=== PATIENT | female | born 1995 | race African-American/Black ===

== ENCOUNTER 2016-12-04 02:55 | Observation (INO) ==
[2016-12-04 03:14] VITALS: BP 115/67
[2016-12-04 03:51] LABS: Bilirubin,Urine Negative (Negative); Blood,Urine Negative (Negative); Clarity,Urine Clear (Clear); Color,Urine Yellow (Yellow); Glucose,Urine (UA) Normal (Normal); Ketones,Urine Negative (Negative); Leukocyte Esterase,Urine Negative (Negative); Nitrite,Urine Negative (Negative); PH,Urine 6.5 pH Units (5.0-8.0); Protein,Urine Negative (Neg-Trace); Specific Gravity,Urine 1.014 (1.010-1.025); Urobilinogen,Urine Normal (Normal)
--- NOTE | 2016-12-05 16:04 | OB Labor Progress Note ---
Date of Encounter: 12/04/16 Time of Encounter: 22:00 Labor Progress Note - Plan Plan: patient presented as a labor eval, she was examined and deemed not to be in labor, ok for discharge, NST reactive.
== END 2016-12-04 04:04 | disposition home or self-care (01) ==
LOC: 1NENULAB

== ENCOUNTER 2017-01-14 20:21 | Observation (INO) ==
[2017-01-14 20:58] LABS: Bilirubin,Urine Negative (Negative); Blood,Urine Negative (Negative); Clarity,Urine Clear (Clear); Color,Urine Yellow (Yellow); Glucose,Urine (UA) Normal (Normal); Ketones,Urine Negative (Negative); Leukocyte Esterase,Urine Negative (Negative); Nitrite,Urine Negative (Negative); Protein,Urine Trace mg/dL (Neg-Trace); Specific Gravity,Urine 1.024 (1.010-1.025); Urobilinogen,Urine Normal (Normal)
[2017-01-14 21:00] VITALS: BP 119/73
[2017-01-14 21:01] LABS: Bacteria,Urine None Seen per hpf (None-Few); Hyaline Casts,Urine None Seen per lpf (None-Few); RBC,Urine 0-3 per hpf (0-3); Squamous Epithelial Cell,Urine Many per lpf (None-Few); WBC,Urine 0-3 per hpf (0-3)
--- NOTE | 2017-01-17 08:35 | OB Labor Progress Note ---
Date of Encounter: 01/14/17 Time of Encounter: 13:05 Labor Progress Note - Plan Plan: patient presented to [facility] for labor eval, evaluated and found not to be in labor, cervix closed, NST reactive, ok for discharge
== END 2017-01-14 21:42 | disposition home or self-care (01) ==
LOC: 1NENULAB
PROVIDERS: ADMIT Student in an Organized Health Care Education/Training Program; ATTEND Student in an Organized Health Care Education/Training Program

== ENCOUNTER → 2017-02-25 21:35 | Observation (INO) ==
[2017-02-25 20:42] LABS: Bilirubin,Urine Negative (Negative); Blood,Urine Negative (Negative); Clarity,Urine Clear (Clear); Color,Urine Yellow (Yellow); Glucose,Urine (UA) Normal (Normal); Ketones,Urine Negative (Negative); Leukocyte Esterase,Urine Large (Negative); Nitrite,Urine Negative (Negative); PH,Urine 6.5 pH Units (5.0-8.0); Protein,Urine Negative (Neg-Trace); Specific Gravity,Urine 1.011 (1.010-1.025); Urobilinogen,Urine Normal (Normal)
[2017-02-25 20:44] LABS: Bacteria,Urine Few per hpf (None-Few); Hyaline Casts,Urine None Seen per lpf (None-Few); Squamous Epithelial Cell,Urine Many per lpf (None-Few); WBC,Urine 15-30 per hpf (0-3)
--- NOTE | 2017-02-25 21:46 | OB/GYN Progress Note ---
Date of Encounter: 02/25/17 Time of Encounter: 21:43 - Assessment and Plan (1) 34 weeks gestation of Current Visit: Yes Status: Acute Patient receiving care with Dr. Alexander (2) uterine contractions in third trimester, antepartum Current Visit: Yes Status: Acute Labor warnings given. Pelvic rest recommended. Urine culture pending Subjective - Subjective Principal diagnosis: 34 week cramps and low back pain Interval history: The patient is a 21-year-old at 34 weeks who presents to labor and delivery with low back pain and cramping which started this afternoon. She had intercourse approximately 3 AM. She denies any dysuria or urinary frequency. She has had no loss of fluid or vaginal bleeding. She reports an active fetus. She receives her care with Dr. Alexander Antepartum ROS: new complaints, movement normal, contractions, no loss of fluid, no vaginal bleeding Objective - Vital Signs Vital Signs: Intake and Output 02/25/17 02/25/17 02/25/17 07:59 15:59 23:59 Other: Weight 60.7 kg Patient Weight 02/25/17 23:59 Weight 60.7 kg - Exam FHR: category 1 FHR comments: Baseline 150s Auscultation: bilateral: normal Abdomen: Present: soft, gravid. Absent: distention, tenderness Uterus: Present: normal. Absent: tenderness Cervical dilation: 1-2 Cervix effacement: 70 station: -1 Comments: No CVA tenderness bilaterally - Labs Labs: Abnormal lab results Ur Leukocyte Esterase Large (Negative) H 02/25/17 20:34 Urine Microscopic RBC 3-5 per hpf (0-3) H 02/25/17 20:34 Urine Microscopic WBC 15-30 per hpf (0-3) H 02/25/17 20:34 Ur Squamous Epith Cells Many per lpf (None-Few) H 02/25/17 20:34 Ur Culture Indicated? YES (NO) A 02/25/17 20:34 - Allied health notes Allied health notes reviewed: nursing
== END | disposition home or self-care (01) ==
LOC: 1NENULAB
PROVIDERS: ADMIT Obstetrics & Gynecology; ATTEND Obstetrics & Gynecology

== ENCOUNTER → 2017-03-01 11:05 | Observation (INO) ==
[2017-03-01 09:40] LABS: Bilirubin,Urine Negative (Negative); Blood,Urine Negative (Negative); Clarity,Urine Cloudy (Clear); Color,Urine Yellow (Yellow); Glucose,Urine (UA) Normal (Normal); Ketones,Urine Negative (Negative); Leukocyte Esterase,Urine Negative (Negative); Nitrite,Urine Negative (Negative); PH,Urine 6.5 pH Units (5.0-8.0); Protein,Urine Negative (Neg-Trace); Specific Gravity,Urine 1.019 (1.010-1.025); Urobilinogen,Urine Normal (Normal)
[2017-03-01 09:42] LABS: Bacteria,Urine Few per hpf (None-Few); Hyaline Casts,Urine None Seen per lpf (None-Few); RBC,Urine 0-3 per hpf (0-3); Squamous Epithelial Cell,Urine Many per lpf (None-Few)
--- NOTE | 2017-03-01 10:59 | OB/GYN Progress Note ---
Date of Encounter: 03/01/17 Time of Encounter: 10:55 - Assessment and Plan (1) 35 weeks gestation of Status: Acute (2) Pelvic pressure in , antepartum Status: Acute Ms. Posada is a 21 yo F at 35+1 who reports to L&D c/o pelvic pain/ pressure x 4 hours. Patient reports symptoms improving. Patient's cervix is unchanged from last visit to L&D. Serial exam unchanged. Patient and baby were monitored. Patient is safe for discharge home with labor precautions and when to call provider, pt verbalizes understanding. (3) NST (non-stress test) reactive Status: Acute Baseline 135 Subjective - Subjective Principal diagnosis: Rule out Labor / Pelvic pressure/pain Interval history: Ms. Posada is a 21 yo F at 35+1 who reports to L&D c/o pelvic pain/ pressure x 4 hours. Patient reports feeling pain/pressure starting at 5am. Patient reports pressure has lessened since being in L&D. Patient was seen here in L&D a few days ago with similar sxs. At that time she was examined and was 2cm dilated. Patient denies vaginal bleeding, loss of fluid, vomiting, diarrhea , cold sxs, dysuria. Patient reports good movement. Labs: Blood type O+ Rubella not immune, GBS not obtianed yet. Antepartum ROS: movement normal, contractions, no loss of fluid, no vaginal bleeding Objective - Vital Signs Vital Signs: Intake and Output 02/28/17 03/01/17 03/01/17 23:59 07:59 15:59 Other: Weight 59.2 kg Patient Weight 03/01/17 23:59 Weight 59.2 kg - Exam FHR: auscultation normal FHR comments: Baseline 135 Auscultation: bilateral: normal Abdomen: Present: soft, gravid. Absent: tenderness Cervical dilation: 2cm, 70, 0 per nurses exam - Labs Labs: Abnormal lab results Urine Clarity Cloudy (Clear) A 03/01/17 09:29 Urine Microscopic WBC 3-5 per hpf (0-3) H 03/01/17 09:29 Ur Squamous Epith Cells Many per lpf (None-Few) H 03/01/17 09:29
== END | disposition home or self-care (01) ==
LOC: 1NENULAB
PROVIDERS: ADMIT Obstetrics & Gynecology; ATTEND Obstetrics & Gynecology

== ENCOUNTER 2017-03-06 00:01 | Observation (INO) ==
[2017-03-06 00:27] LABS: Bilirubin,Urine Negative (Negative); Blood,Urine Negative (Negative); Clarity,Urine Clear (Clear); Color,Urine Yellow (Yellow); Glucose,Urine (UA) Normal (Normal); Ketones,Urine Negative (Negative); Leukocyte Esterase,Urine Negative (Negative); Nitrite,Urine Negative (Negative); PH,Urine 7.5 pH Units (5.0-8.0); Protein,Urine Negative (Neg-Trace); Urobilinogen,Urine Normal (Normal)
--- NOTE | 2017-03-06 07:01 | OB/GYN Progress Note ---
Date of Encounter: 03/06/17 Time of Encounter: 07:00 (Triaged by RN) - Assessment and Plan (1) uterine contractions in third trimester, antepartum Status: Acute Objective - Vital Signs Vital Signs: Intake and Output 03/05/17 03/05/17 03/06/17 15:59 23:59 07:59 Other: Weight 60.4 kg Patient Weight 03/06/17 23:59 Weight 60.4 kg
== END 2017-03-06 02:01 | disposition home or self-care (01) ==
LOC: 1NENULAB

== ENCOUNTER → 2017-03-09 03:35 | Observation (INO) ==
[2017-03-09 01:10] VITALS: BP 115/65
--- NOTE | 2017-03-09 02:10 | OB/GYN History & Physical ---
Date of Encounter: 03/09/17 Time of Encounter: 02:00 Assessment and Plan (1) Vomiting affecting , antepartum Status: Acute IV hydration with LR IV zofran x 1 dose Consider Rx for Zofran ODT if discharged home. Edit: Disharged home with Rx for Dilegis per patient request. Patient calls in and states that no insurance will not cover. Called Zofran ODT 4mg SL S9cummc PRN nausea and vomiting #30 no refils to [facility]. (2) uterine contractions in third trimester, antepartum Status: Acute Extended monitoring Urinalysis - pending edit - shows dehydration Serial vaginal exams edit - no change in dilation IV Fluids Consider Rx for vistaril if discharged home for therapeutic rest Contractions decreased in strength and frequency after IV fluid and IV zofran. Discharged home with labor precautions and to follow up in the office as scheduled for routing care. (3) NST (non-stress test) reactive Status: Acute FHTs 130 with moderate variability and 15x15 accels and no decels. Contractions every 2-3 minutes that palpate moderate. uterus palpates soft between contractions. (4) 36 weeks gestation of Status: Acute History of Present Illness Chief complaint: Contractions HPI: Ms. Posada is a 21 year old at 36 weeks and 2 days gestation that arrives to labor and delivery with complaints of contractions that began at 1030 this evening. She states that she has been vomiting and having diarrhea since 0800 this am and is unable to keep any food or liquids down. She denies being around anyone with similar symptoms in the past week. She states positive movement. She denies vaginal bleeding/discharge, leaking of fluid, headache, vision changes, and epigastric pain. Her GBS was collected in the office today, results are not yet available. Her blood type is O+, she is varicella immune, and rubella non-immune. The rest of her serology is insignificant. Past Med Surg Social Fam HX - Past Medical History Medical history: no medical history Psychiatric history: no psych history - Past Surgical History Surgical History: no surgical history - Social History Smoking Status: Never smoker Smokeless Tobacco Status: No Alcohol use: none Drug use: none - Family History Mother Living Status: Still Living Hx Family Cardiac Disorders: No Hx Family Respiratory Disorders: No Hx Family Cancer: No Hx Family GI Disorders: No Hx Family Genitourinary Disorders: No Hx Family Endocrine Disorder: No Hx Family Musculoskeletal Disorders: No Hx Family Neuromuscular Disorders: No Hx Family Neurologic Disorders: Yes (seizures) Hx Family HEENT Disorders: No Hx Family Autoimmune Disorders: No Hx Family Reproductive Disorders: No Hx Family Psychosocial Disorders: No Hx Family Medical Disorders: No Obstetrical History - Pregnancies : 2 Para: 1 Term: 1 : 0 Ab's: 0 Livin Medications and Allergies Formula Tablet 1 tab PO DAILY 12/04/16 [History] Allergies No Known Allergies Allergy (Verified 03/06/17 00:07) Review of System OB All systems PM: reviewed and no additional remarkable complaints except as stated Exam - Vital Signs Vital signs: Initial Vital Signs Temp Pulse Resp BP 97.7 F 82 16 115/65 03/09/17 01:08 03/09/17 01:08 03/09/17 01:08 03/09/17 01:08 - Constitutional Constitutional: well developed, well nourished, no acute distress, average body habitus - HEENT HEENT: Normocephaly, Mucus Membranes Moist - Neck Neck exam: full ROM, normal inspection - Lungs Respiratory exam: CTAB - Cardiovascular Cardiovascular exam: RRR, +S1, +S2 - Abdomen Abdomen: Present: bowel sounds normal, gravid, non tender - Extremities Extremities exam: normal capillary refill, normal inspection, radial pulses palpable and symetrical Deep Tendon Reflex Grade: 2+ Normal - Vagina Vagina: Present: normal moisture - Cervix Cervix: Absent: discharge Dilation: 4 (Per RN exam) Effacement: 80 Station: -1 Results Result Diagrams: 03/09/17 02:19 All other labs normal. - VTE Reasons for not Prescribing Prophylaxis: Treatment not Indicated - Low risk for VTE
[2017-03-09 02:30] LABS: Basophils % 0.2 %; Eosinophils # 0.1 K/mcL (0.0-0.6); Eosinophils % 0.5 %; Hemoglobin 12.8 g/dL (11.5-15.4); Immature Granulocytes % 0.4 % (0-4); Lymphocytes # 3.7 K/mcL (0.6-4.6); Lymphocytes % 26.1 %; Mean Corpuscular HGB Conc 34.6 g/dL (31.6-35.5); Mean Corpuscular Volume 92.5 fL (83.0-100.0); Mean Platelet Volume 11.1 fL (9.4-12.4); Monocytes # 1.1 K/mcL (0.0-1.3); Monocytes % 7.9 %; Neutrophils # 9.3 K/mcL (1.6-8.9); Platelet Count 202 K/mcL (140-400); Red Cell Distribution Width 12.2 % (11.5-14.5); Segmented Neutrophils % 64.9 %
[2017-03-09 02:33] LABS: Bilirubin,Urine Negative (Negative); Blood,Urine Negative (Negative); Clarity,Urine Clear (Clear); Color,Urine Yellow (Yellow); Glucose,Urine (UA) Normal (Normal); Ketones,Urine >=160 mg/dL (Negative); Leukocyte Esterase,Urine Negative (Negative); Nitrite,Urine Negative (Negative); PH,Urine 6.5 pH Units (5.0-8.0); Protein,Urine 30 mg/dL (Neg-Trace); Specific Gravity,Urine 1.027 (1.010-1.025); Urobilinogen,Urine Normal (Normal)
[2017-03-09 02:37] LABS: Bacteria,Urine None Seen per hpf (None-Few); Hyaline Casts,Urine None Seen per lpf (None-Few); RBC,Urine 0-3 per hpf (0-3); Squamous Epithelial Cell,Urine Many per lpf (None-Few); WBC,Urine 0-3 per hpf (0-3)
[2017-03-09 02:48] LABS: Mucus,Urine Moderate (Few)
[~2017-03-09 03:35] MED LIST: Ondansetron 4 MG/2 ML VIAL IVP PRN; Ringers Solution, Lactated 1,000 ML IVC ONE
== END | disposition home or self-care (01) ==
LOC: 1NENULAB
PROVIDERS: ADMIT Obstetrics & Gynecology; ATTEND Obstetrics & Gynecology

== ENCOUNTER → 2017-03-10 09:25 | Observation (INO) ==
--- NOTE | 2017-03-10 09:23 | OB/GYN Progress Note ---
Date of Encounter: 03/10/17 Time of Encounter: 09:21 - Assessment and Plan (1) 36 weeks gestation of Current Visit: No Status: Acute (2) NST (non-stress test) reactive Current Visit: No Status: Acute (3) uterine contractions in third trimester, antepartum Current Visit: No Status: Acute No cervical change noted. Discharge home with precautions. Subjective - Subjective Interval history: 21 year-old presenting at 36w3d with c/o contractions. She denies any other complaints including LOF or VB. Good FM. Antepartum ROS: movement normal, contractions, no loss of fluid, no vaginal bleeding Objective - Vital Signs Vital Signs: Intake and Output 03/09/17 03/10/17 03/10/17 23:59 07:59 15:59 Other: Weight 60.3 kg Patient Weight 03/10/17 23:59 Weight 60.3 kg - Exam FHR: category 1 FHR comments: NST reactive Abdomen: Present: soft, gravid. Absent: tenderness Uterus: Absent: tenderness Cervical dilation: 3.5 Comments: repeat SVE unchanged per RN.
== END | disposition home or self-care (01) ==
LOC: 1NENULAB
PROVIDERS: ADMIT Registered Nurse; ATTEND Registered Nurse

== ENCOUNTER → 2017-03-14 22:50 | Observation (INO) ==
[2017-03-14 22:22] LABS: Bilirubin,Urine Negative (Negative); Blood,Urine Negative (Negative); Color,Urine Yellow (Yellow); Glucose,Urine (UA) Normal (Normal); Ketones,Urine Negative (Negative); Leukocyte Esterase,Urine Large (Negative); Nitrite,Urine Negative (Negative); PH,Urine 7.5 pH Units (5.0-8.0); Protein,Urine Trace mg/dL (Neg-Trace); Specific Gravity,Urine 1.024 (1.010-1.025); Urobilinogen,Urine Normal (Normal)
[2017-03-14 22:24] LABS: Bacteria,Urine Moderate per hpf (None-Few); Hyaline Casts,Urine None Seen per lpf (None-Few); RBC,Urine 0-3 per hpf (0-3); Squamous Epithelial Cell,Urine Many per lpf (None-Few)
--- NOTE | 2017-03-14 22:32 | OB/GYN Progress Note ---
Date of Encounter: 03/14/17 Time of Encounter: 22:30 - Assessment and Plan (1) 37 weeks gestation of Current Visit: Yes Status: Acute (2) Vaginal discharge during in third trimester Current Visit: Yes Status: Acute Negative fern. No leaking noted on exam. No cervical change since last admission. Discharge home after ambien. (3) NST (non-stress test) reactive Current Visit: No Status: Acute Subjective - Subjective Interval history: 21 year-old presenting with c/o leaking fluid and contractions. She reports one episode of leaking for a small amount of clear fluid earlier today and contractions ever since. No VB or other complaints. Good FM. Antepartum ROS: loss of fluid, movement normal, contractions, no vaginal bleeding Objective - Vital Signs Vital Signs: Intake and Output 03/14/17 03/14/17 03/14/17 07:59 15:59 23:59 Other: Weight 57 kg Patient Weight 03/14/17 23:59 Weight 57 kg - Exam FHR: category 1 FHR comments: NST reactive Abdomen: Present: soft, gravid. Absent: tenderness Uterus: Absent: tenderness Cervical dilation: 3-4 Cervix effacement: 70 station: -1 Comments: SSE with normal appearing mucus. No pooling. Nitrazine positive. Fern negative. No leaking with SVE.
[2017-03-14 22:33] LABS: Clarity,Urine Hazy (Clear)
== END | disposition home or self-care (01) ==
LOC: 1NENULAB
PROVIDERS: ADMIT Obstetrics & Gynecology; ATTEND Obstetrics & Gynecology

== ENCOUNTER 2017-03-15 11:24 | Inpatient (IN) ==
[2017-03-15] MEDS ORDERED: Famotidine 20 MG/2 ML VIAL IVP PRN (14:37)
[2017-03-15] MEDS ORDERED: Naloxone 0.4 MG/ML INJ IVP PRN (14:37)
[2017-03-15] MEDS ORDERED: Ondansetron 4 MG/2 ML VIAL IVP PRN (14:37)
[2017-03-15] MEDS ORDERED: *HR* Nalbuphine 20 MG/ML AMPUL IVP PRN (14:38)
[2017-03-15] MEDS ORDERED: Ringers Solution, Lactated 1,000 ML ONE (14:40)
[2017-03-15] MEDS ORDERED: *HR* Nalbuphine 20 MG/ML AMPUL ONE (14:40)
--- NOTE | 2017-03-15 14:42 | OB/GYN History & Physical ---
Date of Encounter: 03/15/17 Time of Encounter: 14:40 Assessment and Plan (1) 37 weeks gestation of Current visit: No Status: Acute . (2) Uterine contractions Current visit: Yes Status: Acute Pt observed for over 3 hours made change from 4-6cm. Painful contractions continued. Admit to labor and delivery GBS negative May have nubain and epidural as desired Anticipate Dr. Gupta aware of admission and plan History of Present Illness Chief complaint: contractions HPI: Ms. Posada is a 21 year old female G2Pp1 presents with increase in contractions since last night. Reports good movement, denies vaginal bleeding or leaking of fluid. Pt states she did sleep last night and contractions started again at 9am. Was seen in office by Dr. Alexander and sent for evaluation. Past Med Surg Social Fam HX - Past Medical History Medical history: no medical history Psychiatric history: no psych history - Past Surgical History Surgical History: no surgical history - Social History Smoking Status: Never smoker Smokeless Tobacco Status: No Alcohol use: none Drug use: none - Family History Mother Adopted: No Twin of Family Member: Yes, Fraternal Living Status: Still Living Hx Family Cardiac Disorders: No Hx Family Respiratory Disorders: No Hx Family Cancer: No Hx Family GI Disorders: No Hx Family Genitourinary Disorders: No Hx Family Endocrine Disorder: No Hx Family Musculoskeletal Disorders: No Hx Family Neuromuscular Disorders: No Hx Family Neurologic Disorders: Yes (seizure disorder) Hx Family HEENT Disorders: No Hx Family Autoimmune Disorders: No Hx Family Reproductive Disorders: No Hx Family Psychosocial Disorders: No Hx Family Medical Disorders: No Obstetrical History - Pregnancies : 2 Para: 1 Term: 1 : 0 Ab's: 0 Livin Medications and Allergies Formula Tablet 1 tab PO DAILY 12/04/16 [History] Allergies No Known Allergies Allergy (Verified 03/06/17 00:07) Exam - Constitutional Constitutional: well developed, well nourished, no acute distress, average body habitus - HEENT HEENT: Mucus Membranes Moist - Neck Neck exam: full ROM - Lungs Respiratory exam: CTAB - Cardiovascular Cardiovascular exam: RRR, +S1, +S2 - Breasts Breast: bilateral: normal - Abdomen Abdomen: Present: gravid, non tender - Extremities Extremities exam: normal capillary refill, normal inspection - Vagina Vagina: Present: normal moisture - Cervix Dilation: 6 Results All other labs normal. - VTE Reasons for not Prescribing Prophylaxis: Treatment not Indicated - Low risk for VTE
[2017-03-15] MEDS ORDERED: Ringers Solution, Lactated 1,000 ML IVC SCH (14:45)
[2017-03-15 14:57] LABS: Basophils % 0.2 %; Eosinophils # 0.1 K/mcL (0.0-0.6); Eosinophils % 0.5 %; Hematocrit 39.6 % (35.3-44.9); Hemoglobin 13.3 g/dL (11.5-15.4); Immature Granulocytes % 0.5 % (0-4); Lymphocytes # 3.1 K/mcL (0.6-4.6); Mean Corpuscular HGB Conc 33.6 g/dL (31.6-35.5); Mean Corpuscular Hemoglobin 31.2 pg (28.0-33.3); Mean Platelet Volume 11.1 fL (9.4-12.4); Monocytes # 1.4 K/mcL (0.0-1.3); Monocytes % 7.5 %; Neutrophils # 13.6 K/mcL (1.6-8.9); Platelet Count 200 K/mcL (140-400); Red Blood Count 4.26 M/mcL (3.82-4.97); Red Cell Distribution Width 12.4 % (11.5-14.5); Segmented Neutrophils % 74.3 %
[2017-03-15] MEDS ORDERED: Oxytocin 20 units/ LR 1000 mL 20 UNIT/1,000 ML BAG IVC ONE (15:54)
--- NOTE | 2017-03-15 17:29 | OB/GYN Procedure Note ---
Delivery - Delivery Date: 03/15/17 Provider: Ana Laura Walker Intrapartum events: none Delivery induction: none Delivery augmentation: rupture of membranes Delivery monitor: external FHT, external uterine Anesthesia: none Estimated Blood Loss: 50 - (s) A Infant Delivery Date: 03/15/17 Delivery Time: 16:53 Presentation: vertex Position: OA Route of delivery: Gender: Female Viability: Viable Pounds: 6 Ounces: 4 Weight Gram: 2845 kg at 1 minute: 9 at 5 mins: 10 Shoulder Dystocia: not encountered Specimens collected: cord blood Placenta: spontaneous Cord: 3 umbilical vessels - Repair Episiotomy: none Laceration Description: Periurethral - Complications Delivery complications: none Delivery comments: Pt began maternal bearing down efforts to of liveborn female. Vertex delivered OA and shoulders and body easily followed. No nuchal or shoulder dystocia encountered. Vigorous placed on maternal abdomen APGARS 9/10. Placenta delivered spontaneously (elvis) intact on inspection. Periurethral laceration hemostatic and left unrepaired. EBL 50. Mother and infant left skin to skin. - Disposition Mom disposition: stable in LDR [place] disposition: stable in LDR
[2017-03-15] MEDS ORDERED: Benzocaine/Menthol 56 GM AEROSOL SPRAY TP PRN (18:02)
[2017-03-15] MEDS ORDERED: Measles/Mumps/Rubella Vacc 0.5 ML VIAL SQ PRN (18:02)
[2017-03-15] MEDS ORDERED: Acetaminophen 325 MG TABLET PO PRN (18:02)
[2017-03-15] MEDS ORDERED: Oxytocin 20 units/ LR 1000 mL 20 UNIT/1,000 ML BAG IVC SCH (18:02)
[2017-03-15] MEDS ORDERED: Lanolin 28 GM TUBE TP PRN (18:02)
[2017-03-15] MEDS: Ibuprofen 600 MG TABLET PO PRN (18:14)
[2017-03-15] MEDS ORDERED: Ondansetron ODT 4 MG TAB.RAPDIS SL PRN (20:14)
[2017-03-16] MEDS: Ibuprofen 600 MG TABLET PO PRN ×2 (04:28→11:22)
--- NOTE | 2017-03-16 07:56 | Discharge Summary ---
Date of Encounter: 03/16/17 Time of Encounter: 07:53 - Discharge Diagnosis (1) Vaginal delivery Priority: Primary Status: Acute Comments: Continue routine care discharge home today follow up with Dr. Alexander in 4-6 weeks (2) Breast feeding status of mother Priority: Secondary Status: Acute Comments: support prn - Discharge Medications Prescriptions: Ibuprofen [Motrin] 600 mg PO Q6HR PRN #60 tab PRN Reason: Cramping Breast Pump [BREAST PUMP] 1 each .ROUTE AD #1 each Home Medications: Formula Tablet 1 tab PO DAILY 12/04/16 [History] Benzocaine/Menthol [place] [Dermoplast [place]] 1 appl TP QID PRN aerosol 03/16/17 [Rx] Breast Pump [BREAST PUMP] 1 each .ROUTE AD #1 each 03/16/17 [Rx] Ibuprofen [Motrin] 600 mg PO Q6HR PRN #60 tab 03/16/17 [Rx] Lanolin 1 appl TP QID PRN 03/16/17 [Rx] Vit/FA 1 each PO DAILY tab 03/16/17 [Rx] Allergies/Adverse Reactions: Allergies No Known Allergies Allergy (Verified 03/06/17 00:07) Data Procedures and tests throughout hospitalization: Laboratory Tests 03/15/17 14:45 WBC 18.3 H RBC 4.26 Hgb 13.3 Hct 39.6 MCV 93.0 MCH 31.2 MCHC 33.6 RDW 12.4 Plt Count 200 MPV 11.1 Immature Gran % 0.5 Seg Neutrophils % 74.3 Lymphocytes % 17.0 Monocytes % 7.5 Eosinophils % 0.5 Basophils % 0.2 Neutrophils # 13.6 H Lymphocytes # 3.1 Monocytes # 1.4 H Eosinophils # 0.1 Basophils # 0.0 Labs on day of discharge: Labs from last 24 hours 03/15/17 14:45 WBC 18.3 H RBC 4.26 Hgb 13.3 Hct 39.6 MCV 93.0 MCH 31.2 MCHC 33.6 RDW 12.4 Plt Count 200 MPV 11.1 Immature Gran % 0.5 Seg Neutrophils % 74.3 Lymphocytes % 17.0 Monocytes % 7.5 Eosinophils % 0.5 Basophils % 0.2 Neutrophils # 13.6 H Lymphocytes # 3.1 Monocytes # 1.4 H Eosinophils # 0.1 Basophils # 0.0 Date of admission: 03/15/17 11:24 Primary care physician: Vesta Francois Consults: 03/15/17 18:02 Consult to Conveyor System Operator [CONS] Routine Comment: Vaginal delivery, consult needed 03/15/17 20:19 Consult to Livestock Commission Agent (W&C) [CONS] Routine Reason For Exam: Reason for SW Consult: poor family support Discharging clinician: Joese Deutsch Anticipated date of discharge: 03/16/17 - Patient Status Disposition: Home, Self-Care Condition: Good Functional capacity at discharge: independent ambulation - Discharge Instructions Follow Up With: Vesta Francois MD [Primary Care Provider] - Jermaine Alexander DO [Partnered Physician] - - Diet and Activity Activity: increase activity as tolerated Diet: regular diet Hospital Course Reason for admission: active labor Delivery: Episiotomy: none Laceration: other (periurethral) Other procedures: none complications: none Discharge diagnosis: IUP at term delivered baby: female (breast feeding) Time Attestation: Total time spent providing and/or coordinating discharge services: Time Spent: Less than 30 minutes Exam - Constitutional Vitals: Temp Pulse Resp BP Pulse Ox 98.8 F 94 16 105/66 99 03/16/17 04:00 03/16/17 04:00 03/16/17 04:09 03/16/17 04:00 03/16/17 04:00 General appearance IM: A&O X 3, pleasant, answers questions appropriately - Respiratory Respiratory exam: Present: CTAB - Cardiovascular Cardiovascular exam IM: Present: RRR, +S1, +S2 - GI/Abdominal GI/Abdominal exam IM: normal bowel sounds - Uterine Tone: Firm Uterus Position: 1 Finger Below Umbilicus, Midline - Extremities Exam Extremities exam IM: Present: full ROM, normal capillary refill, normal inspection - Neurological Exam Neurological exam: alert, oriented X3, reflexes normal
[2017-03-16] MEDS ORDERED: Prenatal Vit/FA 1 EACH TABLET PO SCH (09:00)
[2017-03-16 15:55] VITALS: BP 113/71
== END 2017-03-16 17:00 | disposition home or self-care (01) | DRG 560 ==
LOC: 1NENULAB → OBSVTOIN 11:24 → 1NENUOBS 20:20
PROVIDERS: ADMIT Obstetrics & Gynecology; ATTEND Obstetrics & Gynecology

== ENCOUNTER 2018-04-26 13:02 | Observation (INO) ==
[2018-04-26 13:52] LABS: Bilirubin,Urine Negative (Negative); Blood,Urine Negative (Negative); Clarity,Urine Clear (Clear); Color,Urine Yellow (Yellow); Glucose,Urine (UA) Normal (Normal); Ketones,Urine Negative (Negative); Leukocyte Esterase,Urine Negative (Negative); Nitrite,Urine Negative (Negative); PH,Urine 6.5 pH Units (5.0-8.0); Protein,Urine Trace mg/dL (Neg-Trace); Specific Gravity,Urine 1.016 (1.010-1.025); Urobilinogen,Urine Normal (Normal)
[2018-04-26 13:54] LABS: Bacteria,Urine None Seen per hpf (None-Few); Hyaline Casts,Urine None Seen per lpf (None-Few); Squamous Epithelial Cell,Urine Many per lpf (None-Few); WBC,Urine 0-3 per hpf (0-3)
[2018-04-26 14:10] LABS: Amphetamine Screen,Urine Negative ng/mL (Cutoff=1000); Barbiturate Screen,Urine Negative ng/mL (Cutoff=200); Benzodiazepines Screen,Urine Negative ng/mL (Cutoff=200); Cannabinoid Screen,Urine Negative ng/mL (Cutoff = 50); Cocaine Screen,Urine Negative ng/mL (Cutoff= 300); Opiate Screen,Urine Negative ng/mL (Cutoff=300); Phencyclidine Screen,Urine Negative ng/mL (Cutoff=25)
[2018-04-26] MEDS ORDERED: Acetaminophen 325 MG TABLET PO ONE (14:37)
[2018-04-26 14:39] LABS: Candida DNA Not Detected (Not Detect); Gardnerella DNA Not Detected (Not Detect); Trichomonas DNA Not Detected (Not Detect)
--- NOTE | 2018-04-26 14:42 | OB/GYN Progress Note ---
Date of Encounter: 04/26/18 Time of Encounter: 14:39 - Assessment and Plan (1) 32 weeks gestation of Current Visit: Yes Status: Acute Urine - normal UDS - negative Vaginosis panel - negative Encouraged hospice care transitions coordinator, maternity support belt, and good body mechanics for abdominal pain - suspect round ligament pain Steriods x 2 doses - patient to return tomorrow afternoon for second dose Discharge home with labor precautions Follow up in the office with routine care and PRN. (2) NST (non-stress test) reactive Current Visit: Yes Status: Acute Subjective - Subjective Principal diagnosis: Right sided abdominal pain Interval history: Ms Amaya is a at 32 weeks and 5 days that presents to triage with c/o increased right sided pain that comes and goes. It is not related to movement. She states positive movement. She denies headache, vision changes, epigastric pain, leaking of fluid, vaginal bleeding, and contractions. She states she has not had any problems with this . She delivered her last baby at 37 weeks and 1 day. Antepartum ROS: movement normal, no loss of fluid, no vaginal bleeding, no contractions Objective - Vital Signs Vital Signs: Intake and Output 04/25/18 04/26/18 04/26/18 23:59 07:59 15:59 Other: Weight 64.229 kg Patient Weight 04/26/18 23:59 Weight 64.229 kg - Exam FHR: auscultation normal, category 1 FHR comments: appropriate for gestation. 150's baseline. Appropriate for gestation. Uterine irritability with irregular contractions noted. Auscultation: bilateral: normal Abdomen: Present: normal appearance, soft, gravid, tenderness (right abdomen lateral to umbilicus) Uterus: Present: normal. Absent: firm, tenderness Cervical dilation: 1 Cervix effacement: 60 station: -1 - Labs Labs: Abnormal lab results Urine Microscopic RBC 3-5 per hpf (0-3) H 04/26/18 13:40 Ur Squamous Epith Cells Many per lpf (None-Few) H 04/26/18 13:40
[2018-04-26] MEDS ORDERED: Betamethasone Acet/SodPhos 6 MG/ML MDV IM SCH (14:45)
== END 2018-04-26 15:13 | disposition home or self-care (01) ==
LOC: 1NENULAB
PROVIDERS: ADMIT Student in an Organized Health Care Education/Training Program; ATTEND Student in an Organized Health Care Education/Training Program

== ENCOUNTER → 2018-05-12 14:39 | Observation (INO) ==
[2018-05-12 13:18] LABS: Bilirubin,Urine Negative (Negative); Blood,Urine Negative (Negative); Clarity,Urine Clear (Clear); Color,Urine Yellow (Yellow); Glucose,Urine (UA) Normal (Normal); Ketones,Urine Trace mg/dL (Negative); Leukocyte Esterase,Urine Negative (Negative); Nitrite,Urine Negative (Negative); Protein,Urine 30 mg/dL (Neg-Trace); Specific Gravity,Urine 1.022 (1.010-1.025); Urobilinogen,Urine Normal (Normal)
[2018-05-12 13:19] LABS: Bacteria,Urine None Seen per hpf (None-Few); Hyaline Casts,Urine None Seen per lpf (None-Few); Squamous Epithelial Cell,Urine Many per lpf (None-Few); WBC,Urine 0-3 per hpf (0-3)
[2018-05-12 13:42] LABS: Amphetamine Screen,Urine Negative ng/mL (Cutoff=1000); Barbiturate Screen,Urine Negative ng/mL (Cutoff=200); Benzodiazepines Screen,Urine Negative ng/mL (Cutoff=200); Cannabinoid Screen,Urine Negative ng/mL (Cutoff = 50); Cocaine Screen,Urine Negative ng/mL (Cutoff= 300); Opiate Screen,Urine Negative ng/mL (Cutoff=300); Phencyclidine Screen,Urine Negative ng/mL (Cutoff=25)
--- NOTE | 2018-05-12 14:29 | Discharge Summary ---
Date of Encounter: 05/12/18 Time of Encounter: 14:29 - Discharge Diagnosis (1) False labor before 37 completed weeks of gestation Priority: Primary Status: Resolved Qualifiers: Trimester: third trimester Qualified Code(s): O47.03 - False labor before 37 completed weeks of gestation, third trimester (2) 35 weeks gestation of Priority: Secondary Status: Chronic - Discharge Medications Home Medications: Benzocaine/Menthol [place] [Dermoplast [place]] 1 appl TP QID PRN aerosol 03/16/17 [Rx] Breast Pump [BREAST PUMP] 1 each .ROUTE AD #1 each 03/16/17 [Rx] Ibuprofen [Motrin] 600 mg PO Q6HR PRN #60 tab 03/16/17 [Rx] HYDROcodone/Acet 5/325 mg [[place] 5-325 mg] 1 tab PO Q4H PRN #4 tab 07/04/17 [Rx] HYDROcodone/Acet 5/325 mg [[place] 5-325 mg] 1 tab PO Q6H PRN 4 Days #20 tab MDD 4 tabs 09/10/17 [Rx] Diclofenac Sodium 4 gm TP QID PRN #100 gel..gram. MDD 16 09/16/17 [Rx] Amoxicillin/Clavulanate [Augmentin] 875 mg PO BIDWM #14 tablet 10/16/17 [Rx] [place] 2 cap PO 05/12/18 [History] Meclizine [Antivert] 12.5 mg PO BID PRN 05/12/18 [History] Allergies/Adverse Reactions: 3 Allergy/AdvReac Type Severity Reaction Status Date / Time No Known Allergies Allergy Verified 12/23/17 12:40 Data Procedures and tests throughout hospitalization: Laboratory Tests 05/12/18 05/12/18 12:59 13:08 Urine Color Yellow Urine Clarity Clear Urine pH 6.0 Ur Specific [place] 1.022 Urine Protein 30 H Urine Glucose (UA) Normal Urine Ketones Trace H Urine Blood Negative Urine Nitrite Negative Urine Bilirubin Negative Urine Urobilinogen Normal Ur Leukocyte Esterase Negative Urine Microscopic RBC 3-5 H Urine Microscopic WBC 0-3 Ur Squamous Epith Cells Many H Urine Bacteria None Seen Hyaline Casts None Seen Ur Culture Indicated? NO Urine Opiates Screen Negative Ur Barbiturates Screen Negative Ur Phencyclidine Scrn Negative Ur Amphetamines Screen Negative U Benzodiazepines Scrn Negative Urine Cocaine Screen Negative U Marijuana (THC) Screen Negative Ur Drug Screen Interp See Below Labs on day of discharge: Labs from last 24 hours 05/12/18 05/12/18 13:08 12:59 Urine Color Yellow Urine Clarity Clear Urine pH 6.0 Ur Specific [place] 1.022 Urine Protein 30 H Urine Glucose (UA) Normal Urine Ketones Trace H Urine Blood Negative Urine Nitrite Negative Urine Bilirubin Negative Urine Urobilinogen Normal Ur Leukocyte Esterase Negative Urine Microscopic RBC 3-5 H Urine Microscopic WBC 0-3 Ur Squamous Epith Cells Many H Urine Bacteria None Seen Hyaline Casts None Seen Ur Culture Indicated? NO Urine Opiates Screen Negative Ur Barbiturates Screen Negative Ur Phencyclidine Scrn Negative Ur Amphetamines Screen Negative U Benzodiazepines Scrn Negative Urine Cocaine Screen Negative U Marijuana (THC) Screen Negative Ur Drug Screen Interp See Below Date of admission: 05/12/18 12:18 - Patient Status Disposition: Home, Self-Care Condition: Good Functional capacity at discharge: independent ambulation Overall status at discharge: patient is progressing back to baseline - Discharge Instructions - Diet and Activity Activity: increase activity as tolerated Diet: advance to your usual diet Hospital Course SAMPLE FINISHER Time Attestation: Total time spent providing and/or coordinating discharge services: Exam - Constitutional General appearance IM: A&O X 3 - Respiratory Respiratory exam: Present: CTAB - Cardiovascular Cardiovascular exam IM: Present: RRR - GI/Abdominal GI/Abdominal exam IM: soft - Extremities Exam Extremities exam IM: Present: full ROM - Neurological Exam Neurological exam: CN II-XII intact - VTE Reasons for not Prescribing Prophylaxis: Treatment not Indicated - Low risk for VTE - Attending Attestation lauren gonzales md facog
== END | disposition home or self-care (01) ==
LOC: 1NENULAB
PROVIDERS: ADMIT Advanced Practice Midwife; ATTEND Advanced Practice Midwife

== ENCOUNTER → 2018-05-18 23:56 | Observation (INO) ==
[2018-05-18 22:00] LABS: Bilirubin,Urine Negative (Negative); Blood,Urine Negative (Negative); Clarity,Urine Clear (Clear); Color,Urine Yellow (Yellow); Glucose,Urine (UA) Normal (Normal); Ketones,Urine Negative (Negative); Leukocyte Esterase,Urine Negative (Negative); Nitrite,Urine Negative (Negative); Protein,Urine Negative (Neg-Trace); Urobilinogen,Urine Normal (Normal)
[2018-05-18 22:06] LABS: Amphetamine Screen,Urine Negative ng/mL (Cutoff=1000); Barbiturate Screen,Urine Negative ng/mL (Cutoff=200); Benzodiazepines Screen,Urine Negative ng/mL (Cutoff=200); Cannabinoid Screen,Urine Negative ng/mL (Cutoff = 50); Cocaine Screen,Urine Negative ng/mL (Cutoff= 300); Opiate Screen,Urine Negative ng/mL (Cutoff=300); Phencyclidine Screen,Urine Negative ng/mL (Cutoff=25)
[~2018-05-18 23:56] MED LIST changes: +Acetaminophen 325 MG TABLET PO ONE; -Ondansetron 4 MG/2 ML VIAL IVP PRN; -Ringers Solution, Lactated 1,000 ML IVC ONE
--- NOTE | 2018-05-19 00:06 | Discharge Summary ---
Date of Encounter: 05/19/18 Time of Encounter: 00:01 - Discharge Diagnosis (1) Uterine contractions at greater than 20 weeks of gestation Priority: Primary Status: Acute Comments: No cervical change after 2 hours of monitoring (2) 36 weeks gestation of Priority: Secondary Status: Acute Comments: Follow-up with Dr. lAexander as scheduled labor parameters discussed Discharge home - Discharge Medications Home Medications: Amoxicillin/Clavulanate [Augmentin] 875 mg PO BIDWM #14 tablet 10/16/17 [Rx] Flintstones 2 cap PO DAILY 05/12/18 [History] Meclizine [Antivert] 25 mg PO PRN PRN 05/12/18 [History] Allergies/Adverse Reactions: 3 Allergy/AdvReac Type Severity Reaction Status Date / Time No Known Allergies Allergy Verified 05/18/18 21:31 Data Procedures and tests throughout hospitalization: Laboratory Tests 05/18/18 05/18/18 21:36 21:36 Urine Color Yellow Urine Clarity Clear Urine pH 7.0 Ur Specific [place] 1.020 Urine Protein Negative Urine Glucose (UA) Normal Urine Ketones Negative Urine Blood Negative Urine Nitrite Negative Urine Bilirubin Negative Urine Urobilinogen Normal Ur Leukocyte Esterase Negative Ur Culture Indicated? NO Urine Opiates Screen Negative Ur Barbiturates Screen Negative Ur Phencyclidine Scrn Negative Ur Amphetamines Screen Negative U Benzodiazepines Scrn Negative Urine Cocaine Screen Negative U Marijuana (THC) Screen Negative Ur Drug Screen Interp See Below Labs on day of discharge: Labs from last 24 hours 05/18/18 05/18/18 21:36 21:36 Urine Color Yellow Urine Clarity Clear Urine pH 7.0 Ur Specific [place] 1.020 Urine Protein Negative Urine Glucose (UA) Normal Urine Ketones Negative Urine Blood Negative Urine Nitrite Negative Urine Bilirubin Negative Urine Urobilinogen Normal Ur Leukocyte Esterase Negative Ur Culture Indicated? NO Urine Opiates Screen Negative Ur Barbiturates Screen Negative Ur Phencyclidine Scrn Negative Ur Amphetamines Screen Negative U Benzodiazepines Scrn Negative Urine Cocaine Screen Negative U Marijuana (THC) Screen Negative Ur Drug Screen Interp See Below Date of admission: 05/18/18 21:11 Discharging clinician: My Cazares Anticipated date of discharge: 05/19/18 - Patient Status Disposition: Home, Self-Care Condition: Good Overall status at discharge: patient is progressing back to baseline - Discharge Instructions Follow Up With: Jermaine Alexander DO [Partnered Physician] - Additional Instructions: LABOR AND DELIVERY DISCHARGE INSTRUCTIONS Signs and Symptoms to be Reported to your Doctor Immediately: * Sudden gush, continuous or intermittent lead of fluid from vagina (note the time of gush and color of fluid) * Onset of bright red vaginal bleeding with or without pain (if you had a vaginal exam during this visit you may notice some dark red spotting. This is normal.) * Lower abdominal cramping or backache that is premenstrual-like feeling. * More than 6 contractions in one hour. * Burning during urination, having to urinate more frequently or pain in your mid-back. * A change in the baby's activity. This could be an increase or decrease in activity. * Severe headache which does not go away with tylenol. * Sudden swelling in the face, hands, arms and/or legs. * Upper abdominal pain - sometimes associated with heartburn or nausea and is not relieved by Maalox, Mylanta or Tums. * Dizziness or blurred vision or visual disturbances (seeing stars/lights). * Kick Counts One hour after a meal, lay down on one side in a quiet place. Count the number of olive the baby moves during an hour. If less than 6 movements, notify your physician. Diet: *Force fluids - 8-10 tall glasses of fluid per day. May include popsicles and jello. *Limit caffeine - this includes chocolate, coffee, tea, any soft drink containing such as all deanne, Eliezer Yellow and Mountain Dew - Diet and Activity Activity: increase activity as tolerated Diet: regular diet Hospital Course ANIMAL NUTRITIONIST Time Attestation: Total time spent providing and/or coordinating discharge services: Exam - Constitutional General appearance IM: A&O X 3 - Respiratory Respiratory exam: Present: CTAB - Cardiovascular Cardiovascular exam IM: Present: RRR, +S1, +S2 - GI/Abdominal GI/Abdominal exam IM: normal bowel sounds, no peritoneal signs - Rectal Rectal exam: deferred - Uterine Tone: Firm - Extremities Exam Extremities exam IM: Present: normal capillary refill, normal inspection, radial pulses palpable and symmetrical - Neurological Exam Neurological exam: alert, CN II-XII intact, normal gait, oriented X3, reflexes normal, no focal deficits, strengths equal and symetr throughout
== END | disposition home or self-care (01) ==
LOC: 1NENULAB
PROVIDERS: ADMIT Advanced Practice Midwife; ATTEND Advanced Practice Midwife

== ENCOUNTER → 2018-05-21 20:55 | Observation (INO) ==
[2018-05-21 19:35] LABS: Bilirubin,Urine Negative (Negative); Blood,Urine Negative (Negative); Clarity,Urine Clear (Clear); Color,Urine Yellow (Yellow); Glucose,Urine (UA) Normal (Normal); Ketones,Urine Negative (Negative); Leukocyte Esterase,Urine Negative (Negative); Nitrite,Urine Negative (Negative); PH,Urine 6.5 pH Units (5.0-8.0); Protein,Urine Trace mg/dL (Neg-Trace); Specific Gravity,Urine 1.021 (1.010-1.025); Urobilinogen,Urine Normal (Normal)
[2018-05-21 19:37] LABS: Bacteria,Urine None Seen per hpf (None-Few); Hyaline Casts,Urine None Seen per lpf (None-Few); Squamous Epithelial Cell,Urine Many per lpf (None-Few); WBC,Urine 0-3 per hpf (0-3)
[2018-05-21 19:48] LABS: Amphetamine Screen,Urine Negative ng/mL (Cutoff=1000); Barbiturate Screen,Urine Negative ng/mL (Cutoff=200); Benzodiazepines Screen,Urine Negative ng/mL (Cutoff=200); Cannabinoid Screen,Urine Negative ng/mL (Cutoff = 50); Cocaine Screen,Urine Negative ng/mL (Cutoff= 300); Opiate Screen,Urine Negative ng/mL (Cutoff=300); Phencyclidine Screen,Urine Negative ng/mL (Cutoff=25)
--- NOTE | 2018-05-21 20:53 | OB/GYN Progress Note ---
Date of Encounter: 05/21/18 Time of Encounter: 20:51 - Assessment and Plan (1) NST (non-stress test) reactive Current Visit: Yes Status: Acute Reactive NST Urine negative No change with cervical exam GBS collected Discharge home with labor precautions Follow up in office with routine care as scheduled and PRN (2) 36 weeks gestation of Current Visit: Yes Status: Acute Subjective - Subjective Principal diagnosis: labor evaluation Interval history: 36 week presents to triage with c/o backache and contractions. Was seen at [facility] earlier today for same c/o and discharged. Patient missed with Dr Alexander earlier today - will collect GBS tonight. She states positive movement. She denies headache, vision changes, epigastric pain, leaking of fluid , and vaginal discharge. Antepartum ROS: movement normal, contractions, no new complaints, no loss of fluid Objective - Exam FHR: auscultation normal, category 1 FHR comments: Category I tracing Cervical dilation: 3 Cervix effacement: 80 station: -2 - Labs Labs: Abnormal lab results Urine Microscopic RBC 3-5 per hpf (0-3) H 05/21/18 19:00 Ur Squamous Epith Cells Many per lpf (None-Few) H 05/21/18 19:00
== END | disposition home or self-care (01) ==
LOC: 1NENULAB
PROVIDERS: ADMIT Advanced Practice Midwife; ATTEND Advanced Practice Midwife

== ENCOUNTER 2018-06-01 19:52 | Inpatient (IN) ==
[2018-06-01 18:35] LABS: Bilirubin,Urine Negative (Negative); Blood,Urine Negative (Negative); Clarity,Urine Clear (Clear); Color,Urine Yellow (Yellow); Glucose,Urine (UA) Normal (Normal); Ketones,Urine Negative (Negative); Leukocyte Esterase,Urine Negative (Negative); Nitrite,Urine Negative (Negative); Protein,Urine Negative (Neg-Trace); Specific Gravity,Urine 1.014 (1.010-1.025); Urobilinogen,Urine Normal (Normal)
[2018-06-01 18:43] LABS: Amphetamine Screen,Urine Negative ng/mL (Cutoff=1000); Barbiturate Screen,Urine Negative ng/mL (Cutoff=200); Benzodiazepines Screen,Urine Negative ng/mL (Cutoff=200); Cannabinoid Screen,Urine Negative ng/mL (Cutoff = 50); Cocaine Screen,Urine Negative ng/mL (Cutoff= 300); Opiate Screen,Urine Negative ng/mL (Cutoff=300); Phencyclidine Screen,Urine Negative ng/mL (Cutoff=25)
--- NOTE | 2018-06-01 19:47 | OB/GYN History & Physical ---
Date of Encounter: 06/01/18 Time of Encounter: 19:36 Assessment and Plan (1) 37 weeks gestation of Current visit: Yes Status: Acute Admit for labor GBS negative Nubain and/or epidural upon request Anticipate vaginal delivery POC per consult with Dr Nathan History of Present Illness Chief complaint: Labor HPI: Ms. Amaya is a 22 year old at 37 weeks 6 days that presents to triage with c/o contractions that are extremely painful and worsening. She has been seen by Dr Alexander for her . This did have a subchorionic hematoma. She states positive movement. She denies headache, vision changes, epigastric pain, leaking of fluid, and vaginal bleeding Labs: GBS negative Blood type O+ Rubella negative Varicella equivocal HIV NR Hep B neg RPR NR Past Med Surg Social Fam HX - Past Medical History Medical history: no medical history Additional medical history: vaginal cyst x3 Psychiatric history: no psych history - Past Surgical History Surgical History: no surgical history - Social History Smoking Status: Never smoker Smokeless Tobacco Status: No Alcohol use: none Drug use: none - Family History Mother Adopted: No Twin of Family Member: Yes, Fraternal Living Status: Still Living Hx Family Cardiac Disorders: No Hx Family Respiratory Disorders: No Hx Family Cancer: No Hx Family GI Disorders: No Hx Family Endocrine Disorder: No Hx Family Neuromuscular Disorders: Yes (seizures) Hx Family Neurologic Disorders: Yes (Pt.'s mother has seizures) Hx Family HEENT Disorders: No Hx Family Autoimmune Disorders: No Maternal Grandmother Family Member Ethnicity: Non- Living Status: Still Living Obstetrical History - Pregnancies : 3 Para: 2 Term: 2 : 0 Ab's: 0 Livin Medications and Allergies Flintstones 2 cap PO DAILY 05/12/18 [History] Meclizine [Antivert] 25 mg PO PRN PRN 05/12/18 [History] Allergy/AdvReac Type Severity Reaction Status Date / Time No Known Allergies Allergy Verified 05/21/18 19:45 Review of System OB All systems PM: reviewed and no additional remarkable complaints except as stated Exam - Constitutional Constitutional: well developed, well nourished, no acute distress, average body habitus, moderate distress - HEENT HEENT: Normocephaly, Mucus Membranes Moist - Neck Neck exam: full ROM - Lungs Respiratory exam: CTAB - Cardiovascular Cardiovascular exam: RRR, +S1, +S2 - Abdomen Abdomen: Present: bowel sounds normal, gravid, non tender - Extremities Extremities exam: normal capillary refill, normal inspection, radial pulses palpable and symmetrical Deep Tendon Reflex Grade: 2+ Normal - Vagina Vagina: Present: normal moisture - Cervix Dilation: 5 Effacement: 80 Station: 0 - Uterus Uterus exam: Present: normal size, normal contour Results All other labs normal. - VTE Reasons for not Prescribing Prophylaxis: Treatment not Indicated - Low risk for VTE
[~2018-06-01 19:52] MED LIST changes: +*HR* Nalbuphine 10 MG/ML AMPUL IM ONE; +*HR* Nalbuphine 10 MG/ML AMPUL IVP PRN; +*HR* Promethazine 25 MG/ML VIAL IM ONE; -Acetaminophen 325 MG TABLET PO ONE; +Famotidine 20 MG/2 ML VIAL IVP PRN; +Metoclopramide 10 MG/2 ML VIAL IVP PRN; +Naloxone 0.4 MG/ML INJ IVP PRN; +Ondansetron 4 MG/2 ML VIAL IVP PRN; +Oxytocin 20 units/ LR 1000 mL 20 UNIT/1,000 ML BAG IVC ONE; +Ringers Solution, Lactated 1,000 ML IVC SCH
[2018-06-01 19:56] LABS: Basophils % 0.3 %; Eosinophils # 0.1 K/mcL (0.0-0.6); Eosinophils % 0.3 %; Hematocrit 37.6 % (35.3-44.9); Hemoglobin 12.9 g/dL (11.5-15.4); Immature Granulocytes % 0.6 % (0-4); Lymphocytes # 4.3 K/mcL (0.6-4.6); Lymphocytes % 27.9 %; Mean Corpuscular HGB Conc 34.3 g/dL (31.6-35.5); Mean Corpuscular Hemoglobin 30.8 pg (28.0-33.3); Mean Corpuscular Volume 89.7 fL (83.0-100.0); Mean Platelet Volume 11.4 fL (9.4-12.4); Monocytes # 1.4 K/mcL (0.0-1.3); Monocytes % 9.3 %; Neutrophils # 9.5 K/mcL (1.6-8.9); Platelet Count 182 K/mcL (140-400); Red Blood Count 4.19 M/mcL (3.82-4.97); Red Cell Distribution Width 12.1 % (11.5-14.5); Segmented Neutrophils % 61.6 %
--- NOTE | 2018-06-01 20:12 | OB Labor Progress Note ---
Date of Encounter: 06/01/18 Time of Encounter: 20:09 Labor Progress Note - Subjective Subjective: Breathing through contractions. Patient declines an epidural - Vital Signs Vital Signs: VSS - Cervix Cervix: 6-7/100/0 - Heart Tones Heart Tones: 155 category I tracing - [place]: COntractions every 2-3 minutes - Interventions Interventions: AROM for moderate amount of clear fluid. Patient and fetus tolerated well - Plan Plan: Continue routine labor management GBS negative Consider pitocin if needed for augmentation Anticipate vaginal delivery POC per consult with Dr Nathan
--- NOTE | 2018-06-01 20:57 | OB/GYN Procedure Note ---
Delivery - Delivery Date: 06/01/18 Provider: My Zapien Intrapartum events: precipitous labor- <3hr Delivery induction: none Delivery augmentation: rupture of membranes Delivery monitor: external FHT, external uterine Anesthesia: none Quantitated Blood Loss: 200 - Infant (s) Infant A Delivery Date: 06/01/18 Delivery Time: 20:42 Presentation: vertex Position: VALERIA Route of delivery: Gender: Female Viability: Viable Pounds: 7 Ounces: 1 Weight Gram: 3220 kg at 1 minute: 8 at 5 mins: 9 Shoulder Dystocia: not encountered Specimens collected: cord blood Placenta: spontaneous Cord: nuchal cord, 3 umbilical vessels, nuchal reduced - Repair Episiotomy: none Laceration Description: Periurethral (bilateral hemostatic) - Complications Delivery complications: none Delivery comments: Patient progressed to complete and began spontaneously pushing to of viable vigorous female in the VALERIA position. Loose nuchal cord reduced. NO shoulder dystocia, and no meconium noted. Infant placed on maternal abdomen, warmed, dried, and stimulated. Cord double clamped and cut with assistance of grandmother of patient after 1 minute. Apgars 8 and 9 at one and five minutes of age respectively. Placenta delivered spontaneously and appears grossly intact with 3 vessel cord. Upon perineal inspection bilateral periurethral hemostatic lacerations noted; left to heal by second intention. EBL 200mL. Fundus firm and U/2. IV catheter not infusing; 10 mu of pitocin given IM by RN. IV catheter removed. Patient and infant left in skin to skin stable for recovery for [address] Nathan notified of delivery. - Disposition Mom disposition: stable in LDR [place] disposition: stable in LDR
[2018-06-01] MEDS ORDERED: Oxytocin 20 units/ LR 1000 mL 20 UNIT/1,000 ML BAG IVC SCH (21:26)
[2018-06-01] MEDS ORDERED: Benzocaine/Menthol 56 GM AEROSOL SPRAY TP PRN (21:26)
[2018-06-01] MEDS ORDERED: Measles/Mumps/Rubella Vacc 0.5 ML VIAL SQ PRN (21:26)
[2018-06-01] MEDS ORDERED: Lanolin 7 G OINT...G. TP PRN (21:26)
[2018-06-01] MEDS ORDERED: Ondansetron 8 MG in 0.9 % Sodium Chloride 50 ML IVPB ONE (23:46)
[2018-06-02] MEDS ORDERED: Ondansetron 4 MG/2 ML VIAL IVP PRN (00:02)
[2018-06-02] MEDS: Acetaminophen 325 MG TABLET PO PRN ×3 (00:33→20:54)
[2018-06-02] MEDS ORDERED: Ondansetron ODT 4 MG TAB.RAPDIS SL ONE (00:35)
--- NOTE | 2018-06-02 08:32 | OB/GYN Progress Note ---
Date of Encounter: 06/02/18 Time of Encounter: 08:42 - Assessment and Plan (1) Vaginal delivery Current Visit: No Status: Acute Continue routine pp care Ice to perineum prn Dermoplast to perineum prn consult PRN Anticipate d/c to home tomorrow Subjective - Subjective Principal diagnosis: s/p Interval history: Feeling well. Out of bed without dizziness. Minimal cramping and perineal discomfort-using ibuprofen and ice pack. Bottlefeeding infant. Lochia light. Ambulating independently. Voiding independently. Patient reports: appetite normal, voiding normally, pain well controlled, ambulating normally [place]: doing well, bottle feeding Objective - Latest Vital Signs Latest vital signs: Vital Signs Temp Pulse Resp BP Pulse Ox 06/02/18 01:30 98.0 F 70 16 125/83 99 06/02/18 00:30 97.9 F 71 16 110/76 06/01/18 23:27 97.8 F 72 16 111/78 99 Intake and Output 06/01/18 06/02/18 06/02/18 23:59 07:59 15:59 Output Total 400 / 400 Balance -400 / -400 Output: Urine 400 / 400 Other: Weight 58.9 kg - Exam Lungs: bilateral: normal Chest: Normal S1, Normal S2 Extremities: Present: normal Abdomen: Present: normal appearance, soft Uterus: Present: normal, firm - Labs Labs: Laboratory Results - last 24 hr 06/01/18 06/01/18 06/01/18 18:27 18:27 19:30 WBC 15.4 H RBC 4.19 Hgb 12.9 Hct 37.6 MCV 89.7 MCH 30.8 MCHC 34.3 RDW 12.1 Plt Count 182 MPV 11.4 Immature Gran % 0.6 Seg Neutrophils % 61.6 Lymphocytes % 27.9 Monocytes % 9.3 Eosinophils % 0.3 Basophils % 0.3 Neutrophils # 9.5 H Lymphocytes # 4.3 Monocytes # 1.4 H Eosinophils # 0.1 Basophils # 0.0 Urine Color Yellow Urine Clarity Clear Urine pH 7.0 Ur Specific [place] 1.014 Urine Protein Negative Urine Glucose (UA) Normal Urine Ketones Negative Urine Blood Negative Urine Nitrite Negative Urine Bilirubin Negative Urine Urobilinogen Normal Ur Leukocyte Esterase Negative Ur Culture Indicated? NO Urine Opiates Screen Negative Ur Barbiturates Screen Negative Ur Phencyclidine Scrn Negative Ur Amphetamines Screen Negative U Benzodiazepines Scrn Negative Urine Cocaine Screen Negative U Marijuana (THC) Screen Negative Ur Drug Screen Interp See Below
[2018-06-02] MEDS: Ibuprofen 600 MG TABLET PO PRN ×2 (10:03→17:01)
[2018-06-02] MEDS: Prenatal Vit/FA 1 EACH TABLET PO SCH (10:03)
[2018-06-03] MEDS: Ibuprofen 600 MG TABLET PO PRN ×2 (02:04→09:21)
[2018-06-03 08:08] VITALS: BP 120/84
[2018-06-03] MEDS: Prenatal Vit/FA 1 EACH TABLET PO SCH (09:21)
--- NOTE | 2018-06-03 10:19 | Discharge Summary ---
Date of Encounter: 06/03/18 Time of Encounter: 10:38 - Discharge Diagnosis (1) Vaginal delivery Priority: Primary Status: Acute Comments: Pt meeting milestones. She is requesting discharge home. Mild cramping but no other complaints. - Discharge Medications Prescriptions: Ibuprofen [Motrin] 600 mg PO Q6HR PRN #60 tablet PRN Reason: cramping Docusate [Colace] 100 mg PO BID #60 capsule Home Medications: Flintstones 2 cap PO DAILY 05/12/18 [History] Benzocaine/Menthol [place] [Dermoplast [place]] 1 appl TP QID PRN aerosol 06/03/18 [Rx] Docusate [Colace] 100 mg PO BID #60 capsule 06/03/18 [Rx] Ibuprofen [Motrin] 600 mg PO Q6HR PRN #60 tablet 06/03/18 [Rx] Vit/FA 1 each PO DAILY tablet 06/03/18 [Rx] Allergies/Adverse Reactions: Allergy/AdvReac Type Severity Reaction Status Date / Time No Known Allergies Allergy Verified 05/21/18 19:45 Data Procedures and tests throughout hospitalization: Laboratory Tests 06/01/18 06/01/18 06/01/18 18:27 18:27 19:30 WBC 15.4 H RBC 4.19 Hgb 12.9 Hct 37.6 MCV 89.7 MCH 30.8 MCHC 34.3 RDW 12.1 Plt Count 182 MPV 11.4 Immature Gran % 0.6 Seg Neutrophils % 61.6 Lymphocytes % 27.9 Monocytes % 9.3 Eosinophils % 0.3 Basophils % 0.3 Neutrophils # 9.5 H Lymphocytes # 4.3 Monocytes # 1.4 H Eosinophils # 0.1 Basophils # 0.0 Urine Color Yellow Urine Clarity Clear Urine pH 7.0 Ur Specific [place] 1.014 Urine Protein Negative Urine Glucose (UA) Normal Urine Ketones Negative Urine Blood Negative Urine Nitrite Negative Urine Bilirubin Negative Urine Urobilinogen Normal Ur Leukocyte Esterase Negative Ur Culture Indicated? NO Urine Opiates Screen Negative Ur Barbiturates Screen Negative Ur Phencyclidine Scrn Negative Ur Amphetamines Screen Negative U Benzodiazepines Scrn Negative Urine Cocaine Screen Negative U Marijuana (THC) Screen Negative Ur Drug Screen Interp See Below Date of admission: 06/01/18 19:52 Consults: 06/01/18 21:26 Consult to Interrelated Special Education Teacher [CONS] Routine Comment: Vaginal delivery, consult needed Discharging clinician: Caridad Limon Anticipated date of discharge: 06/03/18 - Patient Status Disposition: Home, Self-Care Condition: Good Functional capacity at discharge: independent ambulation Overall status at discharge: patient is progressing back to baseline - Discharge Instructions Follow Up With: Jermaine Alexander DO [Partnered Physician] - - Diet and Activity Activity: increase activity as tolerated Diet: regular diet Hospital Course Reason for admission: active labor Delivery: Episiotomy: none Laceration: other (periurethral) Other procedures: none complications: none Discharge diagnosis: IUP at term delivered [place] baby: female Hospital course: - Delivery Date: 06/01/18 Provider: My Zapien Intrapartum events: precipitous labor- <3hr Delivery induction: none Delivery augmentation: rupture of membranes Delivery monitor: external FHT, external uterine Anesthesia: none Quantitated Blood Loss: 200 - Infant (s) Infant A Infant Delivery Date: 06/01/18 Infant Delivery Time: 20:42 Presentation: vertex Position: VALERIA Route of delivery: Gender: Female Viability: Viable Pounds: 7 Ounces: 1 Weight Gram: 3220 kg at 1 minute: 8 at 5 mins: 9 Shoulder Dystocia: not encountered Specimens collected: cord blood Placenta: spontaneous Cord: nuchal cord, 3 umbilical vessels, nuchal reduced - Repair Episiotomy: none Laceration Description: Periurethral (bilateral hemostatic) - Complications Delivery complications: none - Disposition Mom disposition: home PPD2 disposition: home with mother Time Attestation: Total time spent providing and/or coordinating discharge services: Time Spent: Less than 30 minutes Exam - Constitutional Vitals: Temp Pulse Resp BP Pulse Ox 97.8 F 80 16 120/84 99 06/03/18 08:07 06/03/18 08:07 06/03/18 08:07 06/03/18 08:07 06/03/18 08:07 General appearance IM: A&O X 3 - Respiratory Respiratory exam: Present: CTAB - Cardiovascular Cardiovascular exam IM: Present: RRR - GI/Abdominal GI/Abdominal exam IM: soft - Uterine Tone: Firm Uterus Position: 1 Finger Below Umbilicus - Extremities Exam Extremities exam IM: Present: normal inspection - Neurological Exam Neurological exam: normal gait, oriented X3 - Psychiatric Additional comments: reports good mood. declines contraception since her s/o is currently incarcerated until 2019
[2018-06-03] MEDS ORDERED: *HR* Oxytocin 10 UNIT/ML VIAL IM ONE (10:41)
== END 2018-06-03 10:42 | disposition home or self-care (01) | DRG 560 ==
LOC: 1NENULAB → 1NENUOBS 23:47
PROVIDERS: ADMIT Advanced Practice Midwife; ATTEND Advanced Practice Midwife

== ENCOUNTER → 2021-05-05 23:41 | Observation (INO) ==
[2021-05-05 23:18] LABS: Bilirubin,Urine Negative (Negative); Blood,Urine Negative (Negative); Clarity,Urine Clear (Clear); Color,Urine Light-Yellow (Yellow); Glucose,Urine (UA) Normal (Normal); Ketones,Urine Negative (Negative); Leukocyte Esterase,Urine Negative (Negative); Nitrite,Urine Negative (Negative); PH,Urine 6.5 pH Units (5.0-8.0); Protein,Urine Trace mg/dL (Neg-Trace); Specific Gravity,Urine 1.017 (1.010-1.025); Urobilinogen,Urine Normal (Normal)
== END | disposition home or self-care (01) ==
LOC: 1NENULAB
PROVIDERS: ADMIT Advanced Practice Midwife; ATTEND Advanced Practice Midwife